=== PATIENT | male | born 1970 | race African-American/Black ===

== ENCOUNTER 2022-07-20 16:02 | Emergency (ER) | payer MEDICAID ==
[~2022-07-20] VITALS: Ht 188 cm; Wt 124.5 kg
[2022-07-20 16:30] LABS: APPEARANCE,URINE CLEAR (CLEAR); BILIRUBIN,URINE NEGATIVE (NEGATIVE); GLUCOSE, URINE (UA) NEGATIVE (NEGATIVE); KETONES,URINE NEGATIVE (NEGATIVE); LEUKOCYTE ESTERASE ,URINE NEGATIVE (NEGATIVE); NITRATE,URINE NEGATIVE (NEGATIVE); OCCULT BLOOD,URINE NEGATIVE (NEGATIVE); PH,URINE 5.5 (5.0-8.0); PROTEIN,URINE TRACE mg/dL (NEGATIVE); SPECIFIC GRAVITIY, URINE 1.028 (1.003-1.030); UROBILINOGEN,URINE <=1.0 mg/dL (<=1.0)
[2022-07-20] MEDS ORDERED: LIDOCAINE/PF 1% 2 ML VIAL IM ONE (18:30)
[2022-07-20] MEDS ORDERED: CefTRIAXone SODIUM 1 GM/VIAL IM ONE (18:30)
[2022-07-20] MEDS ORDERED: AZITHROMYCIN 500 MG TABLET PO ONE (18:30)
[2022-07-20 18:45] VITALS: BP 154/100
== END 2022-07-20 18:58 | disposition home or self-care (01) ==
LOC: EMS 16:05
DX: N34.2 Other urethritis (principal); I11.0 Hypertensive heart disease with heart failure; I50.9 Heart failure, unspecified; F17.210 Nicotine dependence, cigarettes, uncomplicated
CPT/HCPCS: 99283; 81003; 36415; 87491; 87591; 96372; J0696; J3490; Q9967